=== PATIENT | male | born 1990 | race Caucasian/White ===

== ENCOUNTER 2020-02-10 01:15 | Emergency (ER) | payer SELFPAY ==
[~2020-02-10] VITALS: Ht 180.3 cm; Wt 70.3 kg
[2020-02-10] MEDS ORDERED: KETOROLAC 30 MG/ML VIAL IVP STA (01:33)
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
[2020-02-10] MEDS ORDERED: TETANUS,DIPTH,PERTUSS P/F (BOOSTRIX) 0.5 ML VIAL IM ONE (01:45)
[2020-02-10] MEDS ORDERED: LIDOCAINE 2% VISCOUS 15 ML UDC MM ONE (01:45)
[2020-02-10] MEDS ORDERED: SILVER SULFADIAZINE 50 GM CREAM TOP SCH (01:45)
[2020-02-10] MEDS ORDERED: TRAM-42 PO (02:17)
[2020-02-10] MEDS ORDERED: SULF1TAB35 PO (02:17)
[2020-02-10] MEDS ORDERED: IBUP-1780 PO (02:17)
[2020-02-10] MEDS ORDERED: SILV20CR14 TP (02:17)
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
--- NOTE | 2020-02-10 02:40 | NUR ---
PT REFUSED IM PAIN MEDICATION AND IM BOOSTRIX. PT STATES HE IS AFRAID OF NEEDLES AND DOES NOT WANT THEM. PT SIGNED REFUSAL OF MEDICATION SHEET FOR BOOSTRIX.
[2020-02-10 02:44] VITALS: BP 128/77
--- NOTE | 2020-02-10 07:43 | Diagnostic Imaging Report ---
Indication: Left hand pain 3 views of the left hand show no fracture, dislocation or other acute abnormalities. IMPRESSION: Negative left hand Dictated by: Dictated on workstation # [id number]
== END 2020-02-10 02:44 | disposition home or self-care (01) ==
LOC: EDUNIT# 01:15 → ER 01:19
DX: T23.292A Burn of second degree of multiple sites of left wrist and hand, initial encounter (principal); T31.0 Burns involving less than 10% of body surface; T79.9XXA Unspecified early complication of trauma, initial encounter; W39.XXXA Discharge of firework, initial encounter; Y92.008 Other place in unspecified non-institutional (private) residence as the place of occurrence of the external cause; Z23 Encounter for immunization; F41.9 Anxiety disorder, unspecified; F17.210 Nicotine dependence, cigarettes, uncomplicated
CPT/HCPCS: 73130; 90715

== ENCOUNTER 2021-12-24 04:14 | Emergency (ER) | payer SELFPAY ==
[~2021-12-24 04:14] MED LIST: IBUP-1780 PO; SILV20CR14 TP; SULF1TAB38 PO; TRAM-42 PO
[2021-12-24] MEDS ORDERED: TETANUS,DIPTH,PERTUSS P/F (BOOSTRIX) 0.5 ML VIAL IM ONE (04:30)
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
[2021-12-24] MEDS ORDERED: LIDOCAINE 1% INJ 20 ML VIAL INJ ONE (04:45)
[2021-12-24] MEDS ORDERED: AMOX500C2 PO (05:07)
[2021-12-24 05:11] VITALS: BP 94/53
== END 2021-12-24 05:11 | disposition home or self-care (01) ==
LOC: EDUNIT# 04:14 → ER 04:17
DX: S61.211A Laceration without foreign body of left index finger without damage to nail, initial encounter (principal); Z23 Encounter for immunization; W26.0XXA Contact with knife, initial encounter